=== PATIENT | female | born 1965 | race Caucasian/White ===

== ENCOUNTER 2020-07-08 09:02 | Inpatient (IN) | payer BC ==
[~2020-07-08] VITALS: Ht 152.4 cm; Wt 59.0 kg
[2020-07-08 09:14] VITALS: Ht 152.4 cm; Wt 59.0 kg
[2020-07-08 09:59] LABS: BASOPHIL % 0.6 % (0.2-1.3); PLATELET COUNT 371 x10^3mcL (179-408); RED CELL DISTRIBUTION WIDTH 12.9 % (12.3-17.7)
[2020-07-08 10:05] LABS: CALCIUM 9.3 mg/dL (8.5-10.1); CARBON DIOXIDE 29.3 mmol/L (21-32); CHLORIDE SERUM 103 mmol/L (98-107); CREATININE SERUM 0.9 mg/dL (0.6-1.0); GFR1 > 60 mL/min; GLUCOSE SERUM 118 mg/dL (74-106); POTASSIUM SERUM 3.6 mmol/L (3.5-5.1); SODIUM SERUM 139 mmol/L (136-145)
[2020-07-08 10:09] LABS: ALBUMIN 3.7 g/dL (3.4-5.0); ALKALINE PHOSPHATASE 72 U/L (46-116); ALT/SGPT 28 U/L (14-59); AST/SGOT 11 U/L (15-37); BILIRUBIN TOTAL 0.37 mg/dL (0.20-1.00); LIPASE 158 IU/L (73-393)
[2020-07-08 10:11] LABS: TOTAL PROTEIN, SERUM 8.3 g/dL (6.4-8.2)
[2020-07-08 10:35] LABS: microscopic required? YES; urine erythrocyte 1+ (NEGATIVE)
[2020-07-08 14:42] LABS: MAGNESIUM 2.2 mg/dL (1.8-2.4); PHOSPHOROUS 3.3 mg/dL (2.5-4.9)
[2020-07-08 22:23] VITALS: BP 145/63
[2020-07-09 05:24] VITALS: BP 115/55
[2020-07-09 08:42] LABS: BASOPHIL % 0.8 % (0.2-1.3); PLATELET COUNT 332 x10^3mcL (179-408); RED CELL DISTRIBUTION WIDTH 13.3 % (12.3-17.7)
[2020-07-09 08:57] LABS: CALCIUM 8.7 mg/dL (8.5-10.1); CARBON DIOXIDE 26.8 mmol/L (21-32); CHLORIDE SERUM 106 mmol/L (98-107); CREATININE SERUM 0.8 mg/dL (0.6-1.0); GFR1 > 60 mL/min; GLUCOSE SERUM 76 mg/dL (74-106); POTASSIUM SERUM 4.1 mmol/L (3.5-5.1); SODIUM SERUM 142 mmol/L (136-145)
[2020-07-09 11:30] VITALS: BP 110/54
[2020-07-09 17:01] VITALS: BP 117/62
[2020-07-09 20:58] VITALS: BP 114/57
[2020-07-10 05:38] VITALS: BP 97/48
[2020-07-10 08:05] VITALS: BP 106/55
[2020-07-10 11:51] VITALS: BP 107/62
[2020-07-10 16:28] LABS: BASOPHIL % 0.3 % (0.2-1.3); PLATELET COUNT 338 x10^3mcL (179-408); RED CELL DISTRIBUTION WIDTH 13.1 % (12.3-17.7)
[2020-07-10 16:41] VITALS: BP 107/58
[2020-07-10 20:40] VITALS: BP 112/56
[2020-07-11 05:43] VITALS: BP 112/59
[2020-07-11 09:17] VITALS: BP 106/60
[2020-07-11] MEDS ORDERED: MOT600 PO (09:40)
[2020-07-11] MEDS ORDERED: NEU300 PO (09:41)
[2020-07-11] MEDS ORDERED: FLA500 PO (09:53)
[2020-07-11 10:41] VITALS: BP 106/60
[2020-07-11 11:03] LABS: BASOPHIL % 0.5 % (0.2-1.3); PLATELET COUNT 330 x10^3mcL (179-408); RED CELL DISTRIBUTION WIDTH 13.2 % (12.3-17.7)
[2020-07-11 11:28] LABS: CALCIUM 8.1 mg/dL (8.5-10.1); CARBON DIOXIDE 25.5 mmol/L (21-32); CHLORIDE SERUM 109 mmol/L (98-107); CREATININE SERUM 0.5 mg/dL (0.6-1.0); GFR1 > 60 mL/min; GLUCOSE SERUM 126 mg/dL (74-106); POTASSIUM SERUM 3.7 mmol/L (3.5-5.1); SODIUM SERUM 142 mmol/L (136-145)
== END 2020-07-11 13:00 | disposition home or self-care (01) | DRG 331 ==
LOC: ED 09:02 → DU 12:05 → MU 12:05 → DU 15:33 → MU 15:41 → DU 22:10
PROVIDERS: Emergency Medicine; Surgery; ADMIT Internal Medicine; ATTEND Internal Medicine
PROC: 0DBH4ZZ Excision of Cecum, Percutaneous Endoscopic Approach (ICD-10-PCS; 2020-07-09)
PROC: 0DNK4ZZ Release Ascending Colon, Percutaneous Endoscopic Approach (ICD-10-PCS; 2020-07-09)
PROC: 0DNH4ZZ Release Cecum, Percutaneous Endoscopic Approach (ICD-10-PCS; 2020-07-09)
PROC: 0DTJ4ZZ Resection of Appendix, Percutaneous Endoscopic Approach (ICD-10-PCS; principal; 2020-07-09 08:30)
DX: K35.33 Acute appendicitis with perforation, localized peritonitis, and gangrene, with abscess (principal); M51.36 Other intervertebral disc degeneration, lumbar region; Z20.828 Contact with and (suspected) exposure to other viral communicable diseases; Z90.710 Acquired absence of both cervix and uterus
CPT/HCPCS: C9113; G0378; J0696; J1170; J1644; J1885; J2001; J2270; J2543; J3010; J3490; J7030; J7060